=== PATIENT | female | born 1960 | race Caucasian/White ===

== ENCOUNTER → 2017-08-19 | Outpatient (CLI) | payer OTHER ==
[~2017-08-19] MED LIST: BUPR150T6 PO; COLE625T12 PO; ESTR0.3T PO; LOSA50TA6 PO; PANT40TA5 PO; PRAV40TA2 PO; SITA1TAB PO
[2017-08-19 08:51] LABS: ALANINE AMINOTRANSFERASE 34 U/L (12-78); ALBUMIN 3.9 g/dL (3.4-5.0); ANION GAP 6 mmol/L (5-15); CHLORIDE 105 mmol/L (98-107); CREATININE 0.92 mg/dL (0.55-1.02)
[2017-08-19 08:53] LABS: ALKALINE PHOSPHATASE 101 U/L (45-117); BILIRUBIN,TOTAL 0.4 mg/dL (0.2-1.0); TOTAL PROTEIN 7.6 g/dL (6.4-8.2)
== END | disposition home or self-care (01) ==
LOC: STAR 07:44
PROVIDERS: ATTEND Surgery
DX: K64.5 Perianal venous thrombosis (principal)
CPT/HCPCS: 36415; 80053; 93005

== ENCOUNTER 2017-08-26 10:37 | Day surgery (SDC) | payer OTHER ==
[2017-08-19 08:20] VITALS: BP 171/119
[~2017-08-26] VITALS: Ht 162.6 cm; Wt 76.0 kg
[2017-08-26] MEDS ORDERED: LACTATED RINGERS 1,000 ML IV SCH (11:17)
[2017-08-26] MEDS ORDERED: FENTANYL PF 100 MCG/2ML ONE ×2 (13:02→14:11)
[2017-08-26] MEDS ORDERED: MIDAZOLAM 1 MG/ML, 2ML ONE (13:02)
[2017-08-26] MEDS ORDERED: BUPIVACAINE/PF 0.5% ONE (13:05)
[2017-08-26] MEDS ORDERED: EPINEPHRINE 1 MG/ML, 1ML ONE (13:06)
[2017-08-26] MEDS ORDERED: CEFAZOLIN 1,000 MG ONE (13:13)
[2017-08-26] MEDS ORDERED: ONDANSETRON 2MG/ML, 2ML ONE (13:13)
[2017-08-26] MEDS ORDERED: KETOROLAC 30 MG/1 ML ONE (13:13)
[2017-08-26] MEDS ORDERED: DEXAMETHASONE 4 MG/ML, 1ML ONE (13:13)
[2017-08-26] MEDS ORDERED: PROPOFOL 10 MG/ML, 20ML ONE (13:13)
[2017-08-26] MEDS ORDERED: LIDOCAINE GEL 2%, 5ML ONE (13:34)
[2017-08-26] MEDS ORDERED: FENTANYL PF 100 MCG/2ML IV PRN (14:00)
[2017-08-26] MEDS ORDERED: EPHEDRINE 50 MG/ML, 1ML IVPush PRN (14:00)
[2017-08-26] MEDS ORDERED: PROMETHAZINE 25 MG/ML, 1ML IV PRN (14:00)
[2017-08-26] MEDS ORDERED: ONDANSETRON 2MG/ML, 2ML IVPush PRN (14:00)
[2017-08-26] MEDS ORDERED: DIAZEPAM 5 MG/ML, 2ML IVPush PRN (14:00)
[2017-08-26] MEDS ORDERED: hydrALAzine 20 MG/ML, 1ML IV PRN (14:00)
[2017-08-26] MEDS ORDERED: MIDAZOLAM 1 MG/ML, 2ML IV PRN (14:00)
[2017-08-26] MEDS ORDERED: METOPROLOL 1 MG/ML, 5ML IV PRN (14:00)
[2017-08-26] MEDS ORDERED: HYDROcodone/APAP 7.5-325MG/15ML UDC PO PRN (14:00)
[2017-08-26] MEDS ORDERED: ACETAMINOPHEN 325 MG TABLET PO PRN (14:00)
[2017-08-26] MEDS ORDERED: HYDROmorphone 1 MG/ML, 1ML IV PRN (14:00)
[2017-08-26] MEDS ORDERED: OXYcodone 5 MG/5 ML ORAL.SOL UDC PO PRN (14:00)
[2017-08-26] MEDS ORDERED: MEPERIDINE/PF 25MG/0.5ML IVPush PRN (14:00)
[2017-08-26] MEDS ORDERED: LABETALOL 5MG/ML, 20ML IV PRN (14:00)
[2017-08-26] MEDS ORDERED: ALBUTEROL SULFATE 2.5 MG/3 ML NPPB PRN (14:00)
[2017-08-26] MEDS ORDERED: ACETAMINOPHEN 650 MG/20.3 ML UDC ONE (14:10)
[2017-08-26] MEDS ORDERED: MEPERIDINE/PF 50 MG/ML ONE (14:11)
[2017-08-26] MEDS ORDERED: OXYcodone 5 MG/5 ML ORAL.SOL UDC ONE (14:11)
== END 2017-08-26 16:00 ==
LOC: OUT 10:37
PROVIDERS: ATTEND Surgery
DX: K64.4 Residual hemorrhoidal skin tags (principal); K60.2 Anal fissure, unspecified; F41.9 Anxiety disorder, unspecified; I10 Essential (primary) hypertension; K21.9 Gastro-esophageal reflux disease without esophagitis; E11.9 Type 2 diabetes mellitus without complications; Z88.6 Allergy status to analgesic agent; Z88.8 Allergy status to other drugs, medicaments and biological substances
CPT/HCPCS: 46200; 46320; 82962; 88304; 88305; J0171; J0690; J1100; J1885; J2175; J2250; J2405; J2704; J3490; J7120; J3010

== ENCOUNTER → 2018-02-20 | Outpatient (CLI) | payer OTHER | END | disposition home or self-care (01) | LOC: CFH 15:42 | PROVIDERS: ATTEND Family Medicine | DX: E04.2 Nontoxic multinodular goiter (principal); E06.3 Autoimmune thyroiditis | CPT/HCPCS: 76536 ==